=== PATIENT | male | born 1940 | race Caucasian/White ===

== ENCOUNTER 2017-02-23 09:06 | Emergency (ER) | payer OTHER, MEDICARE ==
[~2017-02-23] VITALS: Ht 180.3 cm; Wt 90.7 kg
[~2017-02-23 09:06] MED LIST: ASPI81TA2 PO; ATEN50TA PO; CELE200C PO; LOVA40TA75 PO; RANI150T8 PO; [UNRECOGNIZED DRUG - CODE] PO
[2017-02-23 09:09] VITALS: BP_SYST 142
--- NOTE | 2017-02-23 09:15 | NUR ---
Pt placed to ER bed 08, to gown, to sr technical sales consultant. Pt c/o dizzyness with room spinning since 05:00. Pt states that he was attempting to go from kitchen to restroom and felt room spinning. Pt denies LOC, denies falling, no trauma. Pt denies c/o C/P, no SOB. Bradycardic, HR 48 per sr technical sales consultant, states that his HR is usually in the 60's. at bedside.
--- NOTE | 2017-02-23 09:25 | NUR ---
Dr. Vee at bedside to assess pt.
[2017-02-23] MEDS ORDERED: ONDANSETRON HCL 4 MG/2 ML VIAL IVP ONE (09:30)
[2017-02-23] MEDS ORDERED: MECLIZINE HCL 25 MG TABLET (ANITVERT) PO ONE (09:30)
--- NOTE | 2017-02-23 09:30 | NUR ---
Lab at bedside.
[2017-02-23 09:36] LABS: BASOPHILS % (AUTO) 0.5 % (0.0-2.0); EOSINOPHILS # (AUTO) 0.2 K/uL (0.0-0.4); HEMATOCRIT 45.9 % (36-54); LYMPHOCYTES # (AUTO) 1.3 K/uL (1.0-5.5); LYMPHOCYTES % (AUTO) 21.8 % (20.5-51.5); MEAN CORPUSCULAR HEMOGLOBIN 31 pg (27-31); MEAN CORPUSCULAR HGB CONC 33 % (32-36); MEAN CORPUSCULAR VOLUME 95 fL (79.0-98.0); MONOCYTES # (AUTO) 0.4 K/uL (0.0-1.0); MONOCYTES % (AUTO) 6.3 % (1.7-9.3); NEUTROPHILS % (AUTO) 68.4 % (40.0-70.0); PLATELET COUNT (AUTO) 339 K/uL (130-430); RED BLOOD CELL COUNT(AUTO) 4.81 MIL/uL (4.2-6.2); RED CELL DISTRIBUTION WIDTH 12.6 % (9.0-15.0); WHITE BLOOD COUNT (AUTO) 5.9 K/uL (4.8-10.8)
[2017-02-23 09:46] LABS: ANION GAP 4 (5-15); CALCIUM 9.5 mg/dL (8.4-11.0); CHLORIDE 104 mmol/L (98-107); CREATININE 0.97 mg/dL (0.55-1.30); GLUCOSE 209 mg/dL (70-99); POTASSIUM 4.9 mmol/L (3.5-5.1); SODIUM SERUM 136 mmol/L (136-145); UREA NITROGEN, BLOOD 30 mg/dL (8-21)
[2017-02-23 09:49] LABS: PROTHROMBIN TIME 10.6 SECS (9.5-12.5)
[2017-02-23 09:51] LABS: ALANINE AMINOTRANSFERASE 40 U/L (12-78); ALBUMIN 4.1 g/dL (3.4-4.8); ASPARTATE AMINOTRANSFERASE 23 U/L (10-37); CHOLESTEROL 119 mg/dL (<200); HDL CHOLESTEROL 29 mg/dL (>45); LDL CHOLESTEROL 67 mg/dL (<100); TOTAL BILIRUBIN 0.4 mg/dL (0.0-1.0); TOTAL PROTEIN, SERUM 7.1 g/dL (6.4-8.3); TRIGLYCERIDES 114 mg/dL (30-150)
--- NOTE | 2017-02-23 10:30 | NUR ---
Denies c/o pain or discomfort, relief in dizzyness. No needs verbalized at this time.
[2017-02-23 11:45] VITALS: BP_SYST 127
--- NOTE | 2017-02-23 11:45 | NUR ---
Patient given written and verbal discharge instructions and verbalizes understanding. ER MD discussed with patient the results and treatment provided. Patient in stable condition. ID arm band removed. IV catheter removed intact and dressing applied, no active bleeding. Rx of Meclizine and Zofran given. Patient educated on pain management and to follow up with PMD. Pain Scale 0/10. Opportunity for questions provided and answered.
== END 2017-02-23 11:45 | disposition home or self-care (01) ==
LOC: SED 09:07
DX: R42 Dizziness and giddiness (principal); E11.9 Type 2 diabetes mellitus without complications; I10 Essential (primary) hypertension; Z95.818 Presence of other cardiac implants and grafts; Z88.2 Allergy status to sulfonamides; Z79.82 Long term (current) use of aspirin
CPT/HCPCS: 36415; 70450; 71010; 80053; 80061; 83880; 84484; 85025; 85610; 85730; 93005; 96374; 99285; J2405; J8597; 96375

== ENCOUNTER 2020-01-21 10:27 | Emergency (ER) | payer OTHER, MEDICARE ==
[~2020-01-21] VITALS: Ht 182.9 cm; Wt 84.4 kg
[~2020-01-21 10:27] MED LIST changes: +ASPI-1155 PO; -ASPI81TA2 PO; +FENO200C PO; -[UNRECOGNIZED DRUG - CODE] PO
[2020-01-21 10:45] VITALS: BP_SYST 130
--- NOTE | 2020-01-21 10:45 | NUR ---
Placed in room 4 . Placed on teletypesetter monitor, blood pressure machine and pulse oximeter. To gown for exam. Side rails up. Report given to ILDEFONSO Liao.
[2020-01-21] MEDS ORDERED: NACL 0.9% 1,000 ML IV ONE (10:47)
--- NOTE | 2020-01-21 10:50 | NUR ---
Pt came to ER for leg pain while vacuuming deck approximately 30 prior to coming in. Pt AO4, resting in [facility], rates pain tolerable.
--- NOTE | 2020-01-21 11:05 | NUR ---
ER at bedside examining patient.
[2020-01-21] MEDS ORDERED: MORPHINE 2 MG/ML INJ. SYRINGE IVP ONE (11:15)
--- NOTE | 2020-01-21 11:16 | NUR ---
Spoke with Traci who left contact number for status updates ([phone])
[2020-01-21 11:21] LABS: BASOPHILS % (AUTO) 0.6 % (0.0-2.0); EOSINOPHILS # (AUTO) 0.1 K/uL (0.0-0.4); EOSINOPHILS % (AUTO) 3.1 % (0.0-4.0); HEMATOCRIT 42.7 % (36-54); HEMOGLOBIN 14.5 g/dL (14.0-18.0); LYMPHOCYTES # (AUTO) 1.4 K/uL (1.0-5.5); LYMPHOCYTES % (AUTO) 28.9 % (20.5-51.5); MEAN CORPUSCULAR HEMOGLOBIN 32 pg (27-31); MEAN CORPUSCULAR HGB CONC 34 % (32-36); MEAN CORPUSCULAR VOLUME 94 fL (79.0-98.0); MONOCYTES # (AUTO) 0.4 K/uL (0.0-1.0); MONOCYTES % (AUTO) 8.8 % (1.7-9.3); NEUTROPHILS # (AUTO) 2.8 K/uL (1.8-7.7); NEUTROPHILS % (AUTO) 58.6 % (40.0-70.0); PLATELET COUNT (AUTO) 330 K/uL (130-430); RED BLOOD CELL COUNT(AUTO) 4.55 MIL/uL (4.2-6.2); RED CELL DISTRIBUTION WIDTH 14.2 % (9.0-15.0); WHITE BLOOD COUNT (AUTO) 4.8 K/uL (4.8-10.8)
[2020-01-21 11:29] LABS: ANION GAP 3 (5-15); CALCIUM 9.7 mg/dL (8.4-11.0); CHLORIDE 104 mmol/L (98-107); CREATININE 1.29 mg/dL (0.55-1.30); GLUCOSE 175 mg/dL (70-99); POTASSIUM 4.6 mmol/L (3.5-5.1); SODIUM SERUM 137 mmol/L (136-145); UREA NITROGEN, BLOOD 27 mg/dL (8-21)
[2020-01-21 11:33] LABS: ALANINE AMINOTRANSFERASE 38 U/L (12-78); ALBUMIN 3.8 g/dL (3.4-4.8); AMYLASE 45 U/L (0-100); ASPARTATE AMINOTRANSFERASE 25 U/L (10-37); LIPASE 195 U/L (73-393); PROTHROMBIN TIME 10.4 SECS (9.5-12.5); TOTAL BILIRUBIN 0.4 mg/dL (0.0-1.0)
--- NOTE | 2020-01-21 12:40 | NUR ---
Pt resting in [place], reports pain under control, VSS
[2020-01-21 14:31] VITALS: BP_SYST 156
--- NOTE | 2020-01-21 14:33 | NUR ---
Patient given written and verbal discharge instructions and verbalizes understanding. ER MD discussed with patient the results and treatment provided. Patient in stable condition. ID arm band removed. IV catheter removed intact and dressing applied, no active bleeding. Patient educated on pain management and to follow up with PMD. Pain Scale 0/10. Opportunity for questions provided and answered. Medication side effect fact sheet provided. Educated on wound care, verbalized understanding.
== END 2020-01-21 14:31 | disposition home or self-care (01) ==
LOC: SED 10:27
DX: I83.892 Varicose veins of left lower extremity with other complications (principal); N28.9 Disorder of kidney and ureter, unspecified; I10 Essential (primary) hypertension; I51.9 Heart disease, unspecified; E11.9 Type 2 diabetes mellitus without complications; Z86.73 Personal history of transient ischemic attack (TIA), and cerebral infarction without residual deficits; Z79.82 Long term (current) use of aspirin; Z79.899 Other long term (current) drug therapy; Z88.2 Allergy status to sulfonamides
CPT/HCPCS: 36415; 80053; 82150; 82550; 83605; 83690; 84484; 85025; 85610; 85730; 87040; 93005; 99284; J7030; J2270